=== PATIENT | female | born 1990 | race Hispanic/Latino ===

== ENCOUNTER 2018-09-08 21:41 | Emergency (ER) | payer OTHER, MEDICAID, SELFPAY ==
[2018-09-08 21:47] VITALS: BP 114/65; PULSE 88; RESP 16; TEMP 37.3; O2SAT 99
--- NOTE | 2018-09-08 22:00 | ED.SKABFB ---
HPI - Skin/Abscess/Foreign Bdy General Chief complaint: Skin/Abscess/Foreign Body Stated complaint: bee sting left foot on sunday Time Seen by Provider: 09/08/18 21:53 Source: patient Mode of arrival: ambulatory Limitations: no limitations History of Present Illness HPI narrative: 28-year-old female who states that yesterday she was stung on her 2nd toe of the left foot by a bee. She states that she saw all the be in her sandals. Since then she has had swelling and redness and pain. It has been more than 24 hours since the event. Related Data Home Medications Medication Instructions Recorded Confirmed naproxen sodium [Aleve] #0 12/19/15 08/07/18 Previous Rx's Medication Instructions Recorded cephalexin [Keflex] 500 mg PO QID 5 Days #20 cap 09/08/18 Allergies Allergy/AdvReac Type Severity Reaction Status Date / Time doxycycline Allergy Severe Nausea, Verified 08/07/18 10:22 Vomiting Review of Systems Musculoskeletal Comments: No left ankle pain Integumentary/Breasts Comments: Redness and swelling of the 2nd great toe Neurologic Comments: No tingling left foot Hematologic/Lymphatic Denies easy bleeding and Denies easy bruising Allergic/Immunologic Denies urticaria PFSH Medical History Healthy adult (Acute) Social History lives independently: Yes Social History lives independently: Yes Exam Initial Vital Signs Initial Vital Signs: Vital Signs Temperature 99.1 F 09/08/18 21:47 Pulse Rate 88 09/08/18 21:47 Respiratory Rate 16 09/08/18 21:47 Blood Pressure 114/65 09/08/18 21:47 Pulse Oximetry 99 09/08/18 21:47 Const General: cooperative, well developed, well groomed and No acute distress Orientation: alert, awake and oriented x3 Cardio Pulses: dorsalis pedis present on the left Skin Other: Redness and swelling circumferential to the 2nd toe of the left foot does extend up to the mid foot on the dorsum. Neuro Sensory Exam: no sensory deficits noted Extrem Other: Left ankle unremarkable Psych Appearance: grossly normal and well kempt Course Vital Signs - 8 hr 09/08/18 21:47 Temperature 99.1 F Pulse Rate 88 Respiratory Rate 16 Blood Pressure 114/65 Pulse Oximetry 99 MDM - Skin/Abscess/Foreign Bdy MDM Narrative Medical decision making narrative: No signs of anaphylaxis. She does have swelling and redness extending up into her foot. It has been 24 hours since the sting. I would suspect that if it was a bee sting than this would have improved somewhat by now. She is afebrile. Will send her home with a prescription for antibiotics however she was told to continue with the Benadryl and potentially topical anti-itch cream for the next 24 hours and if her symptoms worsen that she should start taking the antibiotics as directed. She was given other return precautions and follow-up instructions. She expressed understanding and agreement with plan. Discharge Plan Departure Patient Disposition: Home Clinical Impression: Insect bite or sting Discharge Date/Time: 09/08/18 22:05 Interventions: ED Discharge Assessment Last Done: 09/08/18 22:05 Instructions: How to Care for an Insect Bite or Sting, DI for Insect Allergy Activity Restrictions/Additional Instructions: Continue to use the oral Benadryl and ice your foot like we discussed. If your symptoms worsen over the next 24 hours then start taking the antibiotics as directed. If your symptoms improve then just discarded the prescription. Return to the emergency department for any new or worsening symptoms Prescriptions: New cephalexin [Keflex] 500 mg capsule 500 mg PO QID 5 Days Qty: 20 RF: 0 No Action naproxen sodium [Aleve] 220 MG capsule Qty: 0 RF: 0
== END 2018-09-08 22:05 | disposition home or self-care (01) ==
PROVIDERS: Emergency Provider Emergency Medicine
DX: M79.675 Pain in left toe(s) (principal); T63.441A Toxic effect of venom of bees, accidental (unintentional), initial encounter
CPT/HCPCS: 99282; 99283

== ENCOUNTER 2023-04-05 22:48 | Emergency (ER) | payer OTHER, MEDICAID, SELFPAY ==
[2023-04-05 22:58] VITALS: BP 126/75; PULSE 81; RESP 18; TEMP 37; O2SAT 99; BMI 22.6
--- NOTE | 2023-04-05 23:48 | ED_ITS ---
HPI - Skin/Abscess/Foreign Bdy General Chief complaint: Skin/Abscess/Foreign Body Stated complaint: rash all over mouth Time Seen by Provider: 04/05/23 23:21 Source: patient Mode of arrival: Ambulatory History of Present Illness HPI narrative: 33-year-old female presents for facial swelling. She is currently going to [employer] and on Sunday she had microdermabrasion performed. She denies cut/injury, but does say that her upper lip was irritated from having nasal congestion/a cold. Her upper lip has progressively become more swollen and painful. She states this is caused her anxiety to flare-up and she feels like her jaw is swollen. Last tetanus shot 4 years ago Related Data Home Medications Medication Instructions Recorded Confirmed naproxen sodium 220 mg capsule ##0 12/19/15 08/07/18 (Aleve) Previous Rx's Medication Instructions Recorded hydrocodone 5 mg-acetaminophen 325 1 tab PO Q4-6H PRN pain #10 tabs 04/05/23 mg tablet sulfamethoxazole 800 1 tab PO Q12H #14 tabs 04/05/23 mg-trimethoprim 160 mg tablet Allergies Allergy/AdvReac Type Severity Reaction Status Date / Time doxycycline Allergy Severe Nausea, Verified 08/07/18 10:22 Vomiting Review of Systems Review of Systems Narrative: Negative except as noted above Patient History Medical History (Updated 04/05/23 @ 23:54 by Myra Zapata MD) Healthy adult Social History lives independently: Yes Smoking Status: Never smoker Smoking Status: Never smoker Substance Use Type: does not use Exam Initial Vital Signs Initial Vital Signs: Vital Signs Temperature 98.6 F 04/05/23 22:58 Pulse Rate 81 04/05/23 22:58 Respiratory Rate 18 04/05/23 22:58 Blood Pressure 126/75 04/05/23 22:58 Pulse Oximetry 99 04/05/23 22:58 Oxygen Delivery Method Room Air 04/05/23 22:58 Const: Awake, alert, nontoxic appearing ENT: airway patent, mucous membranes moist Cardiac: regular rate, regular rhythm RESP: unlabored, clear bilaterally, no wheezing Skin: swelling center upper lip with pustule present in center. No fluctuance Neuro: AO x3, CN II-XII grossly intact, moves all extremities Course Orders Ordered: Discontinued Medications Diphtheria/Tetanus/Acell Pertussis (Tet,Diph,Pertuss(Acell),Vac/Pf 0.5 Ml Syringe) 0.5 ml IM .ONCE ONE Stop: 04/05/23 23:55 Last Admin: 04/06/23 00:25 Dose: Not Given Documented By: STEPHANIE Ketorolac Tromethamine (Ketorolac 30 Mg/Ml Vial) 30 mg IM NOW ONE Stop: 04/05/23 23:47 Last Admin: 04/06/23 00:08 Dose: 30 mg Documented By: STEPHANIE Trimethoprim/Sulfamethoxazole (Trimeth/Sulfa 160/800 (Ds) Tablet) 1 tab PO NOW ONE Stop: 04/05/23 23:49 Last Admin: 04/06/23 00:08 Dose: 1 tab Documented By: STEPHANIE Vital Signs Vital signs: Vital Signs - 8 hr 04/05/23 22:58 04/06/23 00:21 Temperature 98.6 F 98.6 F Pulse Rate 81 Respiratory Rate 18 Blood Pressure 126/75 Pulse Oximetry 99 Oxygen Delivery Method Room Air Room Air MDM - Skin/Abscess/Foreign Bdy Differential Diagnosis Differential diagnosis: Likely abscess of skin or subcutaneous tissue, dermatophytosis and herpes zoster MDM Narrative Medical decision making narrative: cellulitis/induration of center of upper lip. Patient reports subjective facial swelling and lower jaw swelling, however on exam there is only appreciable swelling in the center of the upper lip and no circumferential lesions or evidence of airway compromise. Patient reports allergy to doxycycline, we will discharge on Bactrim twice daily. Patient counseled to avoid manipulation of the area, recommended using warm compresses multiple times per day. Note for school provided. ED return precautions discussed at bedside. Patient expressed understanding of the plan and is in agreement at this time. All questions answered at the time of discharge. Discharge Plan Departure Patient Disposition: Home Clinical Impression: Cellulitis Instructions: DI for Cellulitis -- Adult Activity Restrictions/Additional Instructions: Avoid touching the area as much as possible. Apply warm compresses multiple times per day. Take all of your antibiotics as prescribed. If you do not see improvement in 48 hours please return for repeat evaluation. Prescriptions: New sulfamethoxazole-trimethoprim 800-160 mg tablet 1 tab PO Q12H Qty: 14 0RF hydrocodone-acetaminophen 5-325 mg tablet 1 tab PO Q4-6H PRN (Reason: pain) Qty: 10 0RF No Action naproxen sodium [Aleve] 220 MG capsule Qty: 0 Stand Alone Forms: Patient Portal/API, Work Release Note
[2023-04-06] MEDS: TRIMETH/SULFA 160/800 (DS) TABLET 1 TAB PO (00:08)
[2023-04-06] MEDS: KETOROLAC 30 MG/ML VIAL IM (00:08)
[2023-04-06 00:21] VITALS: TEMP 37
== END 2023-04-06 00:22 | disposition home or self-care (01) ==
PROVIDERS: Emergency Provider Emergency Medicine
DX: K13.0 Diseases of lips (principal)
CPT/HCPCS: 96372; 99283; J1885